=== PATIENT | female | born 1965 | race Caucasian/White ===

== ENCOUNTER 2016-11-26 15:06 | Emergency (ER) | payer BC ==
[~2016-11-26] VITALS: Ht 175.3 cm; Wt 60.3 kg
[2016-11-26] MEDS ORDERED: ADDERALL 10 MG10 MG PO (15:12)
[2016-11-26] MEDS ORDERED: CITALOPRAM HBR40 MG PO (15:12)
[2016-11-26] MEDS ORDERED: TRAMADOL 50 MG50 MG PO (16:32)
[2016-11-26 16:38] VITALS: BP 97/69
[2016-11-26] MEDS ORDERED: CRUTCHES MISCELL (17:10)
== END 2016-11-26 17:55 | disposition home or self-care (01) ==
LOC: ER 15:06
DX: S82.142A Displaced bicondylar fracture of left tibia, initial encounter for closed fracture (principal); F17.210 Nicotine dependence, cigarettes, uncomplicated; Z88.0 Allergy status to penicillin; W18.30XA Fall on same level, unspecified, initial encounter; Y93.89 Activity, other specified; Y92.89 Other specified places as the place of occurrence of the external cause; Y99.9 Unspecified external cause status